=== PATIENT | male | born 1970 | race Caucasian/White ===

== ENCOUNTER 2020-02-16 20:52 | Emergency (ER) | payer BC ==
[2020-02-16 21:35] LABS: APPEARANCE,URINE Clear (CLEAR); BILIRUBIN,URINE Negative (NEGATIVE); COLOR,URINE Yellow (YELLOW); GLUCOSE, URINE (UA) Negative (NEGATIVE); KETONES,URINE Negative (NEGATIVE); LEUKOCYTE ESTERASE ,URINE Negative (NEGATIVE); NITRATE,URINE Negative (NEGATIVE); OCCULT BLOOD,URINE Small (NEGATIVE); PH,URINE 6.5 (5.0-8.0); PROTEIN,URINE Trace mg/dL (NEGATIVE)
[2020-02-16 21:47] LABS: BACTERIA,URINE Rare /HPF (None Seen); SQUAMOUS EPITHELIAL CELL,UR Rare /HPF (0-2); WBC,URINE 0-1 /HPF (0-1)
[2020-02-16] MEDS ORDERED: DIAZEPAM 5 MG/ML 2 ML SYG ONE (21:48)
[2020-02-16] MEDS ORDERED: KETOROLAC TROMETHAMINE 30MG/ML ONE (21:48)
[2020-02-16 22:08] LABS: BASOPHILS % (AUTO) 0.5 % (0.0-5.0); EOSINOPHILS % (AUTO) 6.2 % (0.0-8.0); HEMATOCRIT 40.4 % (42-54); LYMPHOCYTES % (AUTO) 27.3 % (21.0-51.0); MEAN CORPUSCULAR HEMOGLOBIN 28.2 pg (27.0-33.0); MEAN CORPUSCULAR HGB CONC 34.2 g/dL (32.0-36.0); MEAN CORPUSCULAR VOLUME 82.4 fL (79-99); MONOCYTES % (AUTO) 5.2 % (3.0-13.0); NEUTROPHILS % (AUTO) 60.4 % (40.0-77.0); PLATELET COUNT (AUTO) 335 K/uL (130-400); RED CELL DISTRIBUTION WIDTH 13.3 % (11.0-15.5); WHITE BLOOD COUNT (AUTO) 12.5 K/uL (4.8-10.8)
[2020-02-16 22:18] LABS: CREATININE 1.1 mg/dL (0.5-1.5); POTASSIUM 3.8 mmol/L (3.5-5.1)
[2020-02-16 22:23] LABS: ALBUMIN 3.9 g/dL (3.5-5.0); BILIRUBIN,DIRECT 0.1 mg/dL (0.0-0.3); BILIRUBIN,TOTAL 0.2 mg/dL (0.2-1.0); TOTAL PROTEIN, SERUM 7.5 g/dL (6.0-8.3)
== END 2020-02-16 23:10 | disposition home or self-care (01) ==
LOC: EDH 20:52
DX: K57.92 Diverticulitis of intestine, part unspecified, without perforation or abscess without bleeding (principal); M54.5 Low back pain; Z72.0 Tobacco use
CPT/HCPCS: 36415; 74176; 80048; 80076; 81001; 82550; 83690; 85025; 96374; 96375; 99284; J1885; J3360

== ENCOUNTER → 2021-03-18 | Outpatient (CLI) | payer BC | END | disposition home or self-care (01) | LOC: LAB 10:00 | PROVIDERS: ATTEND Internal Medicine Cardiovascular Disease | DX: Z20.822 Contact with and (suspected) exposure to COVID-19 (principal) | CPT/HCPCS: 87635; C9803 ==

== ENCOUNTER 2023-08-12 00:56 | Emergency (ER) | payer BC ==
[~2023-08-12] VITALS: Ht 167.6 cm; Wt 79.4 kg
[2023-08-12] MEDS ORDERED: PROPOFOL 10 MG/ML 20ML VIAL IV ONE (03:37)
[2023-08-12] MEDS ORDERED: PROPOFOL 10 MG/ML 20ML VIAL IV SCH (04:00)
[2023-08-12] MEDS ORDERED: IBUP-1493 PO (04:24)
[2023-08-12 04:36] VITALS: BP 129/68; PULSE 82; RESP 16; O2SAT 98
== END 2023-08-12 04:54 | disposition home or self-care (01) ==
LOC: EDH 00:56
DX: S93.324A Dislocation of tarsometatarsal joint of right foot, initial encounter (principal); X50.1XXA Overexertion from prolonged static or awkward postures, initial encounter; Y93.89 Activity, other specified; Y92.89 Other specified places as the place of occurrence of the external cause; Y99.8 Other external cause status
CPT/HCPCS: 99283; 28600; 73620; 73630; J2704; J3490